=== PATIENT | male | born 1995 | race African-American/Black ===

== ENCOUNTER 2022-03-11 21:32 | Emergency (ER) | payer MEDICAID, OTHER ==
[~2022-03-11] VITALS: Ht 167.6 cm; Wt 75.0 kg
[2022-03-11] MEDS ORDERED: METHYLPREDNISOLONE SOD SUCC 125 MG/2 ML VIAL IV ONE (21:45)
[2022-03-11] MEDS ORDERED: SODIUM CHLORIDE 0.9% 1,000 ML IV ONE (21:45)
[2022-03-11] MEDS ORDERED: FAMOTIDINE 20MG/2ML VIAL IV ONE (21:45)
[2022-03-12] MEDS ORDERED: EPIN0.3P3 IM (01:34)
[2022-03-12] MEDS ORDERED: DIPH25CA83 MT (01:34)
[2022-03-12 02:49] VITALS: BP 98/52
== END 2022-03-12 03:15 | disposition home or self-care (01) ==
LOC: ER 21:32
DX: T78.02XA Anaphylactic reaction due to shellfish (crustaceans), initial encounter (principal); R03.0 Elevated blood-pressure reading, without diagnosis of hypertension; X58.XXXA Exposure to other specified factors, initial encounter; Y93.89 Activity, other specified; Y92.89 Other specified places as the place of occurrence of the external cause
CPT/HCPCS: 93005; 96361; 96374; 96375; 99285; J2930; J3490; J7030